=== PATIENT | female | born 1985 | race Two or more races ===

== ENCOUNTER 2017-07-21 16:04 | Emergency (ER) | payer MEDICAID ==
[~2017-07-21] VITALS: Ht 160 cm; Wt 65.8 kg
[~2017-07-21 16:04] MED LIST: AUGMENTIN 875-1 EAC1 ORAL; CEPHALEXIN500 MG ORAL; CIPRO500 MG PO; IBUPROFEN600 MG ORAL; KEFLEX500 MG ORAL; NKM; NORCO 5-325 TA1 EACH ORAL; TYLENOL EXTRA500 MG ORAL; ZOFRAN ODT4 MG ORAL
[2017-07-21 16:10] VITALS: BP 109/71
[2017-07-21] MEDS ORDERED: Tylenol #3 tab (300mg/30mg) PO ONE (16:30)
[2017-07-21] MEDS ORDERED: CYCLOBENZAPRINE10 MG ORAL (18:32)
[2017-07-21] MEDS ORDERED: IBUPROFEN600 MG ORAL (18:32)
[2017-07-21 18:38] VITALS: BP 116/79
--- NOTE | 2017-07-21 18:47 | Emergency Room Report ---
History of Present Illness General Chief Complaint: Multiple Trauma/Fall Source: Patient Present Illness HPI 32-year-old female presents ED for evaluation. Patient states yesterday she fell down a flight of stairs. States that she is having pain in her head and neck and lower back. Also complaining of pain to her right shoulder. Pain is 10 out of 10, throbbing, nonradiating. Questionable LOC. Denies any other injuries. No other aggravating or leading factors. Denies any other associated symptoms Allergies: Coded Allergies: No Known Allergies (Unverified , 11/01/14) Patient History Past Medical History: none Past Surgical History: none Pertinent Family History: none Social History: Denies: smoking, alcohol use, drug use Last Menstrual Period: 06/25/17 Now: No Immunizations: UTD Reviewed Nursing Documentation: PMH: Agreed, PSxH: Agreed Nursing Documentation-PMH Past Medical History: No Stated History Review of Systems All Other Systems: negative except mentioned in HPI Physical Exam Vital Signs Date Time Temp Pulse Resp B/P (MAP) Pulse Ox O2 Delivery O2 Flow Rate FiO2 07/21/17 16:10 88 19 109/71 96 Room Air 07/21/17 16:10 98.1 Sp02 EP Interpretation: reviewed, normal General Appearance: no apparent distress, alert, GCS 15, non-toxic Head: normocephalic Eyes: bilateral eye normal inspection, bilateral eye PERRL ENT: hearing grossly normal, normal pharynx, no angioedema, normal voice Neck: tender lateral, tender midline Respiratory: chest non-tender, lungs clear, normal breath sounds, speaking full sentences Cardiovascular #1: regular rate, rhythm, no edema Gastrointestinal: normal bowel sounds, non tender, soft, non-distended, no guarding, no rebound Rectal: deferred Genitourinary: no CVA tenderness, vertebral tenderness Musculoskeletal: tender - R shoulder Neurologic: alert, oriented x3, responsive, motor strength/tone normal, sensory intact, speech normal Psychiatric: judgement/insight normal, memory normal, mood/affect normal, no suicidal/homicidal ideation Skin: normal inspection Lymphatic: normal inspection Medical Decision Making Diagnostic Impression: Primary Impression: Fall Qualified Codes: W19.XXXA - Unspecified fall, initial encounter Additional Impression: Multiple injuries due to trauma ER Course Hospital Course 32-year-old female presenting with headache, neck pain and back pain status post fall down flight of stairs Differential diagnoses include: skull fx, intracranial injury, concussion Clinical course Patient placed on stretcher. After initial history and physical I ordered pain meds, and imaging studies X-rays of right shoulder unremarkable CT head, CT C-spine and CT L-spine show no acute process On reassessment pain is improved. Safe for discharge Diagnosis - fall, multiple injuries due to trauma Stable and discharged to home with Rx Motrin, Flexeril. Followup with PMD. Return to ED if symptoms recur or worsen Labs Test 07/21/17 15:40 Urine HCG, Qualitative Negative Other X-Ray Diagnostic Results Other X-Ray Diagnostic Results : X-Ray ordered: R shoulder # of Views/Limited Vs Complete: 3 View Indication: Pain EP Interpretation: Yes Interpretation: no dislocation, no soft tissue swelling, no fractures Impression: No acute disease Electronically Signed by: Electronically signed by Hoang Arthur MD CT/MRI/US Diagnostic Results CT/MRI/US Diagnostic Results #1: Imaging Test Ordered: CT head Impression no acute process CT/MRI/US Diagnostic Results #2: Imaging Test Ordered: CT C spine Impression no acute process CT/MRI/US Diagnostic Results #3: Imaging Test Ordered: CT L spine Impression no acute process Last Vital Signs Date Time Temp Pulse Resp B/P (MAP) Pulse Ox O2 Delivery O2 Flow Rate FiO2 07/21/17 16:10 98.1 88 19 109/71 96 Room Air Status: improved Disposition: HOME, SELF-CARE Condition: Stable Scripts Cyclobenzaprine Hcl* (FLEXERIL*) 10 Mg Tablet 10 MG ORAL TID Y for Muscle Spasm, #20 TAB Prov: HOANG ARTHUR M.D. 07/21/17 Ibuprofen* (MOTRIN*) 600 Mg Tablet 600 MG ORAL Q8H Y for For Pain, #30 TAB 0 Refills Prov: HOANG ARTHUR M.D. 07/21/17 Referrals: NOT CHOSEN IPA/,REFERRING (PCP) Patient Instructions: Head Injury, Adult, [id number] HOANG ARTHUR M.D. Jul 21, 2017 18:46
--- NOTE | 2017-07-22 08:30 | Diagnostic Imaging Report ---
Indication: Pain in right shoulder Technique: 3 views of the right shoulder Comparison: none Findings: No acute fractures. No dislocations. Joint spaces are preserved. Impression: Negative
--- NOTE | 2017-07-22 08:32 | Diagnostic Imaging Report ---
Indication: Reason For Exam: H/A Technique: Continuous helical CT scanning of the head was performed without intravenous contrast material. Axial and coronal 5 mm sections were generated. Radiation dose was minimized using automated exposure control Dose: Total Dose Length Product - DLP 1333.[address] Dose Index - CTDIvol(s) 70.38 mGy. Comparison: Headache Findings: The ventricular system is normal in size and configuration. There is no shift of midline structures. No abnormal extra-axial fluid collections are noted. There is no evidence of intracerebral bleeding. No other abnormal high or low density areas are noted within the brain. Impression: Normal CT scan of the head without contrast material. This agrees with the preliminary interpretation provided overnight by [facility]. The CT scanner at [facility] is accredited by the [employer] and the scans are performed using protocols designed to limit radiation exposure to as low as reasonably achievable to attain images of sufficient resolution adequate for diagnostic evaluation.
--- NOTE | 2017-07-22 08:36 | Diagnostic Imaging Report ---
Indication: Pain, trauma Technique: Spiral acquisitions obtained through the cervical spine. No IV contrast utilized. Multiplanar reconstructions were generated. Total dose length product 297.25 mGycm. CTDIvol(s) 14.12 mGy. Dose reduction achieved using automated exposure control. Comparison: none Findings: No acute fractures. No dislocations. No prevertebral soft tissue swelling. Normal bony alignment. The disc spaces are preserved. No significant disc bulge or protrusion, spinal stenosis, or neural foraminal stenosis. The included extraspinal soft tissues are unremarkable Impression: Negative This agrees with the preliminary interpretation provided overnight by [facility]. The CT scanner at [facility] is accredited by the [employer] and the scans are performed using protocols designed to limit radiation exposure to as low as reasonably achievable to attain images of sufficient resolution adequate for diagnostic evaluation.
--- NOTE | 2017-07-22 08:40 | Diagnostic Imaging Report ---
Indications: Pain, trauma Technique: Spiral acquisitions obtained through the lumbar spine. Multiplanar reconstructions were generated. No IV contrast utilized. Total dose length product 451.96 mGycm. CTDIvol(s) 17.09 mGy. Dose reduction achieved using automated exposure control Comparison: none Findings: Bony alignment is normal. Vertebral body heights are preserved. The disc spaces are preserved. No evidence of acute fracture. No dislocations. No significant disc bulge or protrusion, spinal stenosis, or neural foraminal stenosis. Impression: Negative The CT scanner at [facility] is accredited by the [employer] and the scans are performed using protocols designed to limit radiation exposure to as low as reasonably achievable to attain images of sufficient resolution adequate for diagnostic evaluation.
== END 2017-07-21 18:38 | disposition home or self-care (01) ==
LOC: EMR 16:33
DX: M25.511 Pain in right shoulder (principal); R51 Headache; M54.5 Low back pain; T14.90XA Injury, unspecified, initial encounter; W10.9XXA Fall (on) (from) unspecified stairs and steps, initial encounter; Y92.9 Unspecified place or not applicable
CPT/HCPCS: 70450; 72125; 72131; 81025; 99284

== ENCOUNTER 2018-02-07 22:55 | Emergency (ER) | payer MEDICAID ==
[~2018-02-07] VITALS: Ht 162.6 cm; Wt 70.3 kg
[~2018-02-07 22:55] MED LIST changes: +CYCLOBENZAPRINE10 MG ORAL
[2018-02-07 23:37] VITALS: BP 110/54
[2018-02-08] MEDS ORDERED: Dicyclomine HCl 10mg/5ml oral soln ORAL ONE
[2018-02-08] MEDS ORDERED: Lidocaine 2% Visc 15ml soln ORAL ONE
[2018-02-08] MEDS ORDERED: HYDROcodone/Acetamin 10/325 tab ORAL ONE
[2018-02-08] MEDS ORDERED: Mylanta II UD 30ml ORAL ONE
[2018-02-08 00:04] LABS: BASOPHILS % (AUTO) 0.8 % (0.0-2.0); EOSINOPHILS % (AUTO) 1.9 % (0.0-3.0); HEMATOCRIT 37.5 % (37.0-47.0); HEMOGLOBIN 13.6 G/DL (12.0-16.0); LYMPHOCYTES % (AUTO) 32.6 % (20.0-45.0); MEAN CORPUSCULAR VOLUME 87 FL (80-99); NEUTROPHILS % (AUTO) 59.7 % (45.0-75.0); PLATELET COUNT 279 K/UL (150-450); RED BLOOD COUNT 4.28 M/UL (4.20-5.40); RED CELL DISTRIBUTION WIDTH 10.2 % (11.6-14.8); WHITE BLOOD COUNT 10.4 K/UL (4.8-10.8)
[2018-02-08 00:15] LABS: BILIRUBIN, URINE NEGATIVE (NEGATIVE); COLOR,URINE PALE YELLOW; GLUCOSE, URINE (UA) NEGATIVE (NEGATIVE); KETONES,URINE NEGATIVE (NEGATIVE); LEUKOCYTE ESTERASE ,URINE NEGATIVE (NEGATIVE); NITRITE,URINE NEGATIVE (NEGATIVE); PH,URINE 8 (4.5-8.0); PROTEIN,URINE NEGATIVE (NEGATIVE); UROBILINOGEN,URINE NORMAL MG/DL (0.0-1.0)
[2018-02-08 00:19] LABS: ANION GAP 9 mmol/L (5-15); BLOOD UREA NITROGEN 10 mg/dL (7-18); CALCIUM 8.4 MG/DL (8.5-10.1); CARBON DIOXIDE 28 MMOL/L (21-32); CHLORIDE 103 MMOL/L (98-107); CREATININE 0.7 MG/DL (0.55-1.30); POTASSIUM 3.3 MMOL/L (3.5-5.1); SODIUM 139 MMOL/L (136-145)
[2018-02-08 00:21] LABS: APPEARANCE,URINE SLIGHTLY CLOUDY
[2018-02-08 00:23] LABS: ALANINE AMINOTRANSFERASE 25 U/L (12-78); ALBUMIN 3.3 G/DL (3.4-5.0); ALBUMIN/GLOBULIN RATIO 0.8 (1.0-2.7); ALKALINE PHOSPHATASE 94 U/L (46-116); ASPARTATE AMINO TRANSFERASE 13 U/L (15-37); BILIRUBIN,TOTAL 0.5 MG/DL (0.2-1.0)
--- NOTE | 2018-02-08 00:45 | Emergency Room Report ---
History of Present Illness General Chief Complaint: Abdominal Pain Source: Patient Present Illness HPI Patient presents with complaints of mid epigastric abdominal pain nausea but denies any vomiting and eyes any diarrhea denies any chest pain or shortness of breath Patient reports that she had a cholecystectomy 2 years ago This pain specifically has been worsening over the past 2-3 days Denies any fevers or chills Denies any change with position Allergies: Coded Allergies: No Known Allergies (Unverified , 11/01/14) Patient History Past Medical History: see triage record Pertinent Family History: none Last Menstrual Period: Jan Reviewed Nursing Documentation: PMH: Agreed; PSxH: Agreed Nursing Documentation-PMH Past Medical History: No Stated History Review of Systems All Other Systems: negative except mentioned in HPI Physical Exam Vital Signs Date Time Temp Pulse Resp B/P (MAP) Pulse Ox O2 Delivery O2 Flow Rate FiO2 02/07/18 22:55 98.2 84 16 108/5 97 Room Air 98.2 Sp02 EP Interpretation: reviewed, normal General Appearance: well appearing, no apparent distress Head: normocephalic, atraumatic Eyes: bilateral eye PERRL, bilateral eye EOMI ENT: hearing grossly normal, normal pharynx, TMs + canals normal, uvula midline Neck: full range of motion, supple, no meningismus, no bony tend Respiratory: lungs clear, normal breath sounds, no rhonchi, no respiratory distress, no retraction, no accessory muscle use Cardiovascular #1: normal peripheral pulses, regular rate, rhythm, no edema, no gallop, no JVD, no murmur Gastrointestinal: normal bowel sounds, soft, no mass, no organomegaly, non- distended, no guarding, no hernia, no pulsatile mass, no rebound, tenderness - Mild discomfort to the epigastric area Genitourinary: no CVA tenderness Musculoskeletal: normal inspection Neurologic: oriented x3, responsive, room service manager III-XII nml as tested, motor strength/ tone normal, sensory intact Psychiatric: mood/affect normal Skin: normal color, no rash, warm/dry, palpation normal Lymphatic: normal inspection, no adenopathy Medical Decision Making Diagnostic Impression: Primary Impression: Abdominal pain Additional Impression: Lung nodule < 6cm on CT ER Course With the history exam and presentation, multiple differentials considered, including but not limited to appendicitis, gastritis, cholecystitis, diverticulitis Patient's CAT scan imaging does not reveal any acute abdominal finding However there was an incidental 4 mm nodule in the right lower lobe of the lung Patient was notified about this abnormal finding and the need for close follow- up Otherwise has done significantly better with her abdominal discomfort and stable for close outpatient follow-up Labs Test 02/07/18 23:04 02/07/18 23:55 Urine Color Pale yellow Urine Appearance Slightly cloudy Urine pH 8 (4.5-8.0) Urine Specific [place] 1.015 (1.005-1.035) Urine Protein Negative (NEGATIVE) Urine Glucose (UA) Negative (NEGATIVE) Urine Ketones Negative (NEGATIVE) Urine Occult Blood 5+ (NEGATIVE) Urine Nitrite Negative (NEGATIVE) Urine Bilirubin Negative (NEGATIVE) Urine Urobilinogen Normal MG/DL (0.0-1.0) Urine Leukocyte Esterase Negative (NEGATIVE) Urine RBC Tntc /HPF (0 - 2) Urine WBC 0-2 /HPF (0 - 2) Urine Squamous Epithelial Cells Moderate /LPF (NONE/OCC) Urine Bacteria Few /HPF (NONE) Urine HCG, Qualitative Negative (NEGATIVE) White Blood Count 10.4 K/UL (4.8-10.8) Red Blood Count 4.28 M/UL (4.20-5.40) Hemoglobin 13.6 G/DL (12.0-16.0) Hematocrit 37.5 % (37.0-47.0) Mean Corpuscular Volume 87 FL (80-99) Mean Corpuscular Hemoglobin 31.7 PG (27.0-31.0) Mean Corpuscular Hemoglobin Concent 36.2 G/DL (32.0-36.0) Red Cell Distribution Width 10.2 % (11.6-14.8) Platelet Count 279 K/UL (150-450) Mean Platelet Volume 8.1 FL (6.5-10.1) Neutrophils (%) (Auto) 59.7 % (45.0-75.0) Lymphocytes (%) (Auto) 32.6 % (20.0-45.0) Monocytes (%) (Auto) 5.0 % (1.0-10.0) Eosinophils (%) (Auto) 1.9 % (0.0-3.0) Basophils (%) (Auto) 0.8 % (0.0-2.0) Sodium Level 139 MMOL/L (136-145) Potassium Level 3.3 MMOL/L (3.5-5.1) Chloride Level 103 MMOL/L (98-107) Carbon Dioxide Level 28 MMOL/L (21-32) Anion Gap 9 mmol/L (5-15) Blood Urea Nitrogen 10 mg/dL (7-18) Creatinine 0.7 MG/DL (0.55-1.30) Estimat Glomerular Filtration Rate > 60 mL/min (>60) Glucose Level 147 MG/DL (74-106) Calcium Level 8.4 MG/DL (8.5-10.1) Total Bilirubin 0.5 MG/DL (0.2-1.0) Aspartate Amino Transf (AST/SGOT) 13 U/L (15-37) Alanine Aminotransferase (ALT/SGPT) 25 U/L (12-78) Alkaline Phosphatase 94 U/L (46-116) Total Protein 7.3 G/DL (6.4-8.2) Albumin 3.3 G/DL (3.4-5.0) Globulin 4.0 g/dL Albumin/Globulin Ratio 0.8 (1.0-2.7) Lipase 173 U/L (73-393) CT/MRI/US Diagnostic Results CT/MRI/US Diagnostic Results : Impression CT abdomen pelvis: No active disease in the abdomen, 4 mm right lower lobe lung nodule Last Vital Signs Date Time Temp Pulse Resp B/P (MAP) Pulse Ox O2 Delivery O2 Flow Rate FiO2 02/08/18 00:12 98.4 02/07/18 23:37 78 15 110/54 98 Room Air Status: improved Disposition: HOME, SELF-CARE Condition: Improved Scripts Acetaminophen (Tylenol) 325 Mg Tablet 650 MG ORAL Q8HR PRN for Prn Pain/Headache/Temp > 101, #20 TAB 0 Refills Prov: Perry Lombardi DO 02/08/18 Referrals: NOT CHOSEN IPA/MD,REFERRING (PCP) Additional Instructions: Patient is provided with the discharge instructions notified to follow up with primary doctor in the next 2-3 days otherwise return to the er with any worsening symptoms. Please note that this report is being documented using DRAGON technology. This can lead to erroneous entry secondary to incorrect interpretation by the dictating instrument. Perry Lombardi DO Feb 08, 2018 00:45
[2018-02-08 02:00] VITALS: BP 112/62
[2018-02-08] MEDS ORDERED: TYLENOL325 MG ORAL (02:07)
[2018-02-08 02:37] VITALS: BP 110/54
--- NOTE | 2018-02-08 09:56 | Diagnostic Imaging Report ---
Indication: Abdominal pain for 2 days Technique: Spiral acquisitions obtained through the abdomen and pelvis. No oral contrast utilized, per emergency room physician request No IV contrast utilized, per referring physician request.. Multiplanar reconstructions were generated. Total dose length product 1072.76 mGycm. CTDIvol(s) 19.07 mGy. Dose reduction achieved using automated exposure control Comparison: None Findings: The appendix is normal. No evidence of diverticulosis or diverticulitis. No small bowel distention. No free or loculated intraperitoneal air or fluid is evident. Distal esophagus, stomach, duodenum are unremarkable. Lack of IV contrast limits assessment of the solid organs. The liver is diffusely hypoattenuating, consistent with fatty change. There are cholecystectomy clips. No biliary ductal dilatation. The pancreas, spleen, adrenals, kidneys are unremarkable. No mesenteric or retroperitoneal mass or adenopathy. No pelvic mass or adenopathy. The included lung bases demonstrate dependent atelectatic changes. There is a focus of pleural thickening within the major fissure on the right Impression: No acute abnormality Fatty liver Evidence of prior cholecystectomy This agrees with the preliminary interpretation provided overnight by [facility]. The CT scanner at [facility] is accredited by the [employer] and the scans are performed using protocols designed to limit radiation exposure to as low as reasonably achievable to attain images of sufficient resolution adequate for diagnostic evaluation.
== END 2018-02-08 02:34 | disposition home or self-care (01) ==
LOC: EMR 23:30
DX: R10.13 Epigastric pain (principal); R91.1 Solitary pulmonary nodule; R11.0 Nausea; Z90.49 Acquired absence of other specified parts of digestive tract; K76.0 Fatty (change of) liver, not elsewhere classified
CPT/HCPCS: 36415; 74176; 80053; 81003; 81025; 83690; 85025; 99284

== ENCOUNTER 2018-09-19 17:05 | Emergency (ER) | payer MEDICAID ==
[~2018-09-19] VITALS: Ht 160 cm; Wt 65.8 kg
[~2018-09-19 17:05] MED LIST changes: +TYLENOL325 MG ORAL
[2018-09-19 17:15] VITALS: BP 106/65
--- NOTE | 2018-09-19 17:25 | NUR ---
ED Nurse Note: Patient walked into Ed c/o left breast pain x 2days patient denies recent trauma. patient reports mass removal on the left breast mass 2 years ago.
--- NOTE | 2018-09-19 17:41 | Emergency Room Report ---
History of Present Illness General Chief Complaint: Pain Source: Patient Present Illness HPI 33-year-old female with history of benign left breast mass removed a few years ago here complaining of pain at the side of mass removal. Patient reports the pain started yesterday after doing strenuous physical activity and lifting heavy objects. Denies any direct trauma to the chest. I any drainage from the left breast. Rating the pain of 10 without radiation denies Tingling numbness has not taken any medication for pain. denies SOB palpitation no other associated symptoms Allergies: Coded Allergies: No Known Allergies (Unverified , 11/01/14) Patient History Past Medical History: see triage record Past Surgical History: unable to obtain Pertinent Family History: none Now: No Reviewed Nursing Documentation: PMH: Agreed; PSxH: Agreed Nursing Documentation-PMH Past Medical History: No History, Except For Review of Systems All Other Systems: negative except mentioned in HPI Physical Exam Vital Signs Date Time Temp Pulse Resp B/P (MAP) Pulse Ox O2 Delivery O2 Flow Rate FiO2 09/19/18 17:15 98.2 84 15 106/65 96 Room Air Sp02 EP Interpretation: reviewed, normal General Appearance: normal inspection, well appearing, no apparent distress Head: normocephalic, atraumatic Eyes: bilateral eye normal inspection, bilateral eye PERRL ENT: normal ENT inspection, hearing grossly normal Neck: normal inspection, supple Respiratory: normal inspection, chest non-tender, lungs clear, no wheezing Cardiovascular #1: normal inspection, normal peripheral pulses, no edema Gastrointestinal: normal inspection, non tender Musculoskeletal: digits/nails normal, gait/station normal, swelling, other - mobile rubbery mass on left breast (at 5:00. Neurologic: normal inspection, alert, oriented x3, psychiatric clinician III-XII nml as tested Psychiatric: normal inspection, judgement/insight normal Skin: normal inspection, normal color, no rash Lymphatic: normal inspection, no adenopathy Medical Decision Making PA Attestation All diagnoses and treatment plans were reviewed and discussed with my supervising physician Diagnostic Impression: Primary Impression: Left breast mass ER Course 33-year-old female with history of benign left breast mass removed a few years ago here complaining of pain at the side of mass removal. Patient reports the pain started yesterday after doing strenuous physical activity and lifting heavy objects. Denies any direct trauma to the chest. I any drainage from the left breast. Rating the pain of 10 without radiation denies Tingling numbness has not taken any medication for pain. denies SOB palpitation no other associated symptoms Ddx considered but are not limited to breast cyst, chest contusion, breast cA Vital signs: are WNL, pt. is afebrile H&PE are most consistent with left breast mass unsepcified ORDERS: ibuprofen ED INTERVENTIONS: None required at this time. DISCHARGE: At this time pt. is stable for d/c to home. Will provide printed patient care instructions, and any necessary prescriptions. Care plan and follow up instructions have been discussed with the patient prior to discharge. f/u pcp for screening breast US Last Vital Signs Date Time Temp Pulse Resp B/P (MAP) Pulse Ox O2 Delivery O2 Flow Rate FiO2 09/19/18 17:15 98.2 84 15 106/65 96 Room Air Disposition: HOME, SELF-CARE Condition: Stable Scripts Ibuprofen* (MOTRIN*) 600 Mg Tablet 600 MG ORAL Q8H PRN for For Pain, #30 TAB 0 Refills Prov: Salud Dunlap 09/19/18 Patient Instructions: Breast Tenderness Additional Instructions: follow up with primary dr for breast screening ultrasound and mass. avoid lifting heavy objects Salud Dunlap Sep 19, 2018 17:41
[2018-09-19] MEDS ORDERED: IBUPROFEN600 MG ORAL (17:42)
[2018-09-19 17:47] VITALS: BP 106/65
--- NOTE | 2018-09-19 17:48 | NUR ---
ER DISCHARGE NOTE: Patient is cleared to be discharged per ERMD, pt is aox4, on room air, with stable vital signs. pt was given dc and prescription instructions, pt was able to verbalize understanding, pt id band removed without complications. pt is able to ambulate with steady gait. pt took all belongings.
== END 2018-09-19 17:57 | disposition home or self-care (01) ==
LOC: EMR 17:49
DX: N63.23 Unspecified lump in the left breast, lower outer quadrant (principal); N64.4 Mastodynia
CPT/HCPCS: 99282